=== PATIENT | female | born 1980 | race Caucasian/White ===

== ENCOUNTER → 2016-09-20 | Outpatient (CLI) | payer BC ==
[~2016-09-20] MED LIST: BIOT500C PO; CYAN500L PO; DCS100C PO; DESV100T PO; FERR-57 PO; FEXO30TA17 PO; HCTZ12.5T GT; HYDR10TA13 PO; IBP600T1 PO; LEVO5TAB2 PO; LVT.05T PO; METF-380 PO; NIFE10CA21 PO; OMEP20TA2 PO; OMEP40CA36 PO; OXYC-12 PO; PANT40TA PO; PREN1TAB39 PO; SERT20OR PO; SERT50TA PO; THYR90TA PO
--- NOTE | 2016-09-20 17:52 | Diagnostic Imaging Report ---
EXAMINATION: Pelvic ultrasound. INDICATION: Bleeding. FINDINGS: The previous pelvic ultrasound exam performed on 06/18/2012 noted a degenerating follicle associated with the left ovary measuring 1.2 cm in size. There was no other abnormality identified. On this exam, the uterus is nongravid and not enlarged measuring 6.3 x 4.3 x 3.8 cm. The endometrium is not thickened measuring 4 mm. There is no focal mass involving the uterus to suggest a fibroid. However, there was a small calcification within the uterine fundus on the right. Whether this is related to a calcified fibroid is not certain. Even in retrospect, this could not be identified on the previous exam. Reportedly, the patient had an ablation one year ago. Whether this calcification is a sequela of that procedure is unclear. Both ovaries were identified. Each ovary contains a few subcentimeter follicles. There may be single 1 cm cyst associated with the left ovary. There is good blood flow to each ovary, and there is no sign of torsion. There is no solid pelvic mass or free fluid collection noted. IMPRESSION: 1. The endometrial lining is not thickened. 2. The area of calcification in the uterine body on the right is of uncertain etiology. 3. There are subcentimeter follicles on each ovary and a small 1 cm cyst in the left ovary. There is no acute pelvic abnormality noted otherwise. Dictated by: Dictated on workstation # [id number]
== END ==
LOC: RAD 14:34
PROVIDERS: ATTEND Obstetrics & Gynecology
DX: N93.9 Abnormal uterine and vaginal bleeding, unspecified (principal); Z98.890 Other specified postprocedural states
CPT/HCPCS: 76830; 76856

== ENCOUNTER 2017-08-29 05:38 | Outpatient (CLI) | payer BC ==
[~2017-08-29] VITALS: Ht 160 cm; Wt 70.3 kg
[2017-08-29] MEDS ORDERED: OMEP40CA36 PO (12:24)
[2017-08-29] MEDS ORDERED: MV-M1TAB20 PO (12:24)
[2017-08-29] MEDS ORDERED: AMPH25CA3 PO (12:24)
[2017-08-29] MEDS ORDERED: LEVO5TAB12 PO (12:24)
[2017-08-29] MEDS ORDERED: ALPR0.254 PO (12:24)
[2017-08-29] MEDS ORDERED: vitamin b complex IM (12:24)
[2017-09-01] MEDS ORDERED: IBUP-1773 PO (14:16)
[2017-09-01] MEDS ORDERED: HYDR-757 PO (14:16)
== END 2017-08-29 12:31 ==
LOC: PREOP 05:38
PROVIDERS: ATTEND Obstetrics & Gynecology
DX: Z01.818 Encounter for other preprocedural examination (principal); N92.0 Excessive and frequent menstruation with regular cycle; N88.2 Stricture and stenosis of cervix uteri

== ENCOUNTER 2017-09-01 10:47 | Day surgery (SDC) | payer BC ==
[~2017-09-01] VITALS: Ht 160 cm; Wt 70.3 kg
[~2017-09-01 10:47] MED LIST changes: +ALPR0.254 PO; +AMPH25CA3 PO; +LEVO5TAB12 PO; +MV-M1TAB20 PO; +vitamin b complex IM
--- OUTSIDE RECORDS SUMMARY | 2017-09-01 10:51 | XMS REPORT | Continuity of Care Document ---
Author Author [employer] Organization [facility] Address Unknown Phone Unavailable Care Team Providers Care Look Out Tower Fire Watcher Name Role Phone [employer] Unavailable Unavailable Problems Medications Allergies, Adverse Reactions, Alerts Immunizations Results Vital Signs Encounters Location Location Details Encounter Type Encounter Number Reason For Visit Attending Provider ADM Date DC Date Status Source OUTPATIENT [id number] TORI FERRIS 01/25/20172016 Active [facility] OP SURGERY [id number] TORI FERRIS 03/28/20172016 Active [facility] OUTPATIENT [id number] TORI FERRIS 04/12/20172016 Active [facility] OUTPATIENT [id number] TORI FERRIS 05/15/20172016 Active [facility] OUTPATIENT [id number] TORI FERRIS 07/05/20172017 Active [facility] O TORI FERRIS Active [facility] Procedures Plan of Care Social History Assessment and Plan Family History Advance Directives Functional Status
--- OUTSIDE RECORDS SUMMARY | 2017-09-01 10:53 | XMS REPORT | Encounter Summary ---
Author Author [facility] Organization [facility] Address Unknown Phone Unavailable Care Team Providers Care Hydraulic Strainer Operator Name Role Phone Viktoria Perez MD PCP Encounter Details Date Type Department Care Team Description 08/16/2017 Documentation [facility] Cameron Nunez MD [facility] [address] [place] [address] [place] [address] [place] [address] [phone] Social History Tobacco Use Types Packs/Day Years Used Date Former Smoker Cigarettes 1 15 Quit: 11/17/2009 Smokeless Tobacco: Never Used Alcohol Use Drinks/Week oz/Week Comments Yes 2-4 Cans of 1.2 - 2.4 twice weekly beer Sex Assigned at Date Recorded Not on file as of this encounter Functional Status Functional Status Response Date of Assessment Does the patient have a hearing impairment: No 07/05/2017 Does the patient have a visual impairment: No 07/05/2017 Does the patient have impaired ambulation: No 07/05/2017 Does the patient have an activity of daily living No 07/05/2017 (ADL) impairment: Does the patient have an instrumental activity of No 07/05/2017 daily living (IADL) impairment: Cognitive Status Response Date of Assessment Does the patient have a cognitive impairment: No 07/05/2017 as of this encounter Progress Notes * Radha Calero RN - 08/16/2017 8:59 AM INSOLE REINFORCER Faxed PT protocol to Frank at [phone], per patient protocol. No further action required at this time. in this encounter Plan of Treatment Not on fileas of this encounter Visit Diagnoses Not on filein this encounter
--- OUTSIDE RECORDS SUMMARY | 2017-09-01 10:53 | XMS REPORT | Clinical Summary ---
Author Author [facility] Organization [facility] Address Unknown Phone Unavailable Care Team Providers Care Molding Sander Name Role Phone Viktoria Perez MD PCP Source Comments Some departments are not documenting in the electronic medical record. If you do not see the information that you expected, contact Release of Information in the Health Information Management department at [phone] for further assistance in locating additional records.[facility] Allergies Active Allergy Reactions Severity Noted Date Comments Berries ANGIOEDEMA High 01/25/2017 Melon ANGIOEDEMA High 01/25/2017 Shellfish Containing ANGIOEDEMA High 01/25/2017 Products Current Medications Prescription Sig. Disp. Refills Start End Date Status Date Levocetirizine 5 mg tab Take 5 mg by mouth daily. Active ALPRAZolam (XANAX) 0.25 Take 0.25 mg by mouth at Active mg tablet bedtime as needed for Anxiety. amphetamine-dextroampheta Take 25 mg by mouth every Active mine XR(+) (ADDERALL XR) morning Indications: 25 mg capsuleIndications: ATTENTION-DEFICIT ATTENTION-DEFICIT HYPERACTIVITY DISORDER HYPERACTIVITY DISORDER HYDROcodone/acetaminophen Take 1 tablet by mouth Active (NORCO) 5/325 mg tablet every 4 hours as needed for Pain ibuprofen (MOTRIN) 800 mg Take 800 mg by mouth Active tabletIndications: PAIN every 6 hours as needed for Pain. Take with food. Indications: PAIN omeprazole DR(+) Take 40 mg by mouth daily Active (PRILOSEC) 40 mg before breakfast. capsuleIndications: Indications: GASTROESOPHAGEAL REFLUX GASTROESOPHAGEAL REFLUX DISEASE DISEASE lisinopril (PRINIVIL; Take 40 mg by mouth Active ZESTRIL) 20 mg tablet daily. oxyCODONE (ROXICODONE, Take 1 tablet by mouth 50 tablet 0 /10/20 Active OXY-IR) 5 mg tablet every 4 hours as needed 17 for Pain naproxen (NAPROSYN) 500 Take 1 tablet by mouth 60 tablet 2 03/28/20 Active mg tablet twice daily with meals. 17 Take with food. 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 Acetabular labrum tear 02/04/2017 Encounters Date Type Specialty Care Team Description 08/16/2017 Documentation Sports Medicine Cameron Nunez MD 07/05/2017 Office Visit Sports Medicine Cameron Nunez MD Femoroacetabular impingement of left hip (Primary Dx); Tear of left acetabular labrum, subsequent encounter; Left hip pain; Trochanteric bursitis of left hip; Ischiogluteal bursitis of left side from Last 3 Months Family History Medical History Relation Name Comments None Reported Father Coronary Artery Disease Maternal Grandfather Diabetes Type II Maternal Grandmother None Reported Mother Coronary Artery Disease Paternal Grandfather Relation Name Status Comments Father Alive Maternal Grandfather Maternal Grandmother Alive Mother Alive Paternal Grandfather Social History Tobacco Use Types Packs/Day Years Used Date Former Smoker Cigarettes 1 15 Quit: 11/17/2009 Smokeless Tobacco: Never Used Alcohol Use Drinks/Week oz/Week Comments Yes 2-4 Cans of 1.2 - 2.4 twice weekly beer Sex Assigned at Date Recorded Not on file Last Filed Vital Signs Vital Sign Reading Time Taken Blood Pressure 133/116 07/05/2017 3:21 PM SHIP LINER Pulse 66 07/05/2017 3:21 PM SHIP LINER Temperature 36 C (96.8 F) 03/28/2017 1:40 PM CDT Respiratory Rate 15 07/05/2017 3:21 PM SHIP LINER Oxygen Saturation 100% 07/05/2017 3:21 PM SHIP LINER Inhaled Oxygen - - Concentration Weight 70.3 kg (155 lb) 07/05/2017 3:21 PM SHIP LINER Height 160 cm (5' 3") 07/05/2017 3:21 PM SHIP LINER Body Mass Index 27.46 07/05/2017 3:21 PM SHIP LINER Plan of Treatment Health Maintenance Due Date Last Done Comments PHYSICAL (COMPREHENSIVE) 1986 EXAM PERTUSSIS VACCINE 1990 HIV SCREENING 1994 TETANUS VACCINE 1996 CERVICAL CANCER SCREENING 2009 INFLUENZA VACCINE 03/19/2018 Implants Implanted Type Area Step Down Specialist Device Expiration Model / Identifier Date Serial / Lot Plate In Jaw Plate Screws In Jaw Screw Jumping Branch - Sna Left: Hip UNIDENTIFIED 04/20/2018 [id number] / Implanted: Qty: 3 on 03/28/2017 by [facility] [place] / Cameron Nunez MD [id number] Jumping Branch Suture Cinchlock Ss Knotless Left: Hip AHMET:AHMET 2018 [id number] / Call Box Wirer Lock Anatomic - Sna ENDOSCOPY NA / Implanted: Qty: 1 on 03/28/2017 by [id number] Cameron Nunez MD Jumping Branch Suture Cinchlock Ss Knotless Left: Hip AHMET:AHMET 2017 [id number] / Call Box Wirer Lock Anatomic - Sna ENDOSCOPY NA / Implanted: Qty: 1 on 03/28/2017 by [id number] Cameron Nunez MD Suture Jumping Branch 1.4mm Pivot [place] - Left: Hip AHMET:AHMET 11/19/2019 [id number] / Sn/A ORTHOPAEDICS N/A / Implanted: Qty: 1 on 03/28/2017 by [id number] Cameron Nunez MD Procedures Procedure Name Priority Date/Time Associated Diagnosis Comments [place] ARTHROCENTESIS Routine 07/06/2017 Ischiogluteal bursitis of Results for this ASPIR&/INJ MAJOR JT/BURSA 10:01 PM SHIP LINER left side procedure are in the W/O US results section. [place] ARTHROCENTESIS Routine 07/06/2017 Trochanteric bursitis of Results for this ASPIR&/INJ MAJOR JT/BURSA 10:01 PM SHIP LINER left hip procedure are in the W/O US results section. from Last 3 Months Results * [employer] [facility] LARGE JOINT DRAIN/INJECT (07/06/2017 10:01 PM) Specimen Performing Laboratory OTHER OUTSIDE LAB Narrative Cameron Nunez MD 07/06/2017 10:01 PM Large Joint Drain/Inject Location: hip L ischiogluteal bursa Consent: Consent obtained: verbal Consent given by: patient Risks discussed: arrhythmia, bleeding, bradycardia, damage to surrounding structures, headache, hyperglycemia, infection, itching, nerve damage, pain, skin discoloration, soft tissue reaction and vomiting Alternatives discussed: alternative treatment, delayed treatment and no treatment [place] Protocol: Relevant documents: relevant documents present and verified Test results: test results available and properly labeled Imaging studies: imaging studies available Required items: required blood products, implants, devices, and special equipment available Site marked: the operative site was marked Patient identity confirmed: Patient identify confirmed verbally with patient. Time out: Immediately prior to procedure a "time out" was called to verify the correct patient, procedure, equipment, it technical support specialist and site/side marked as required Procedures Details: Indications: pain Prep: povidone-iodine Local anesthetic: ethyl chloride spray Needle size: 22 G Approach: posterior Medications administered: 4 mL ropivacaine (PF) 0.5% (5 mg/mL); 40 mg triamcinolone acetonide 40 mg/mL * [place] 100e LARGE JOINT DRAIN/INJECT (07/06/2017 10:01 PM) Specimen Performing Laboratory OTHER OUTSIDE LAB Narrative Cameron Nunez MD 07/06/2017 10:01 PM Large Joint Drain/Inject Location: hip L greater trochanteric bursa Consent: Consent obtained: verbal Consent given by: patient Risks discussed: bleeding, damage to surrounding structures, hyperglycemia, infection, itching, pain, skin discoloration and soft tissue reaction Alternatives discussed: alternative treatment, delayed treatment and no treatment Discussed with patient the purpose of the treatment/procedure, other ways of treating my condition, including no treatment/ procedure and the risks and benefits of the alternatives. Patient has decided to proceed with treatment/procedure. [place] Protocol: Relevant documents: relevant documents present and verified Test results: test results available and properly labeled Imaging studies: imaging studies available Required items: required blood products, implants, devices, and special equipment available Site marked: the operative site was marked Patient identity confirmed: Patient identify confirmed verbally with patient. Time out: Immediately prior to procedure a "time out" was called to verify the correct patient, procedure, equipment, it technical support specialist and site/side marked as required Procedures Details: Indications: pain Prep: povidone-iodine Local anesthetic: ethyl chloride spray Needle size: 22 G Approach: lateral Medications administered: 4 mL ropivacaine (PF) 0.5% (5 mg/mL); 40 mg triamcinolone acetonide 40 mg/mL Patient tolerance: Patient tolerated the procedure well with no immediate complications. Pressure was applied, and hemostasis was accomplished. from Last 3 Months
--- OUTSIDE RECORDS SUMMARY | 2017-09-01 10:53 | XMS REPORT | Encounter Summary ---
Author Author [facility] Organization [facility] Address Unknown Phone Unavailable Care Team Providers Care District Manager Name Role Phone Viktoria Perez MD PCP Reason for Referral * Consult, Test & Treat Status Reason Specialty Diagnoses / Referred By Referred To Procedures Contact Contact Closed Specialty Physical Therapy Diagnoses Cameron Nunez Ortho Pt Services Femoroacetabular MD [facility] Required impingement of [address] [place], [place] Tear of left [place] [address] [id number] acetabular [place], [place] labrum, [id number] subsequent Phone: encounter [phone] Reason for Visit * Reason Comments Follow Up Encounter Details Date Type Department Care Team Description 07/05/2017 Office Visit [facility] Cameron Nunez MD Femoroacetabular [facility] [address] impingement of left hip Complex [place] [address] (Primary Dx); [address] [place] [address] [place]ear [place] [address] labrum, subsequent [phone] encounter; Left hip pain; Trochanteric bursitis of left hip; Ischiogluteal bursitis of left side Social History Tobacco Use Types Packs/Day Years Used Date Former Smoker Cigarettes 1 15 Quit: 11/17/2009 Smokeless Tobacco: Never Used Alcohol Use Drinks/Week oz/Week Comments Yes 2-4 Cans of 1.2 - 2.4 twice weekly beer Sex Assigned at Date Recorded Not on file as of this encounter Last Filed Vital Signs Vital Sign Reading Time Taken Blood Pressure 133/116 07/05/2017 3:21 PM PROFESSOR OF ECONOMICS Pulse 66 07/05/2017 3:21 PM PROFESSOR OF ECONOMICS Temperature - - Respiratory Rate 15 07/05/2017 3:21 PM PROFESSOR OF ECONOMICS Oxygen Saturation 100% 07/05/2017 3:21 PM PROFESSOR OF ECONOMICS Inhaled Oxygen - - Concentration Weight 70.3 kg (155 lb) 07/05/2017 3:21 PM PROFESSOR OF ECONOMICS Height 160 cm (5' 3") 07/05/2017 3:21 PM PROFESSOR OF ECONOMICS Body Mass Index 27.46 07/05/2017 3:21 PM PROFESSOR OF ECONOMICS in this encounter Functional Status Functional Status Response [...] as of this encounter Progress Notes * Cameron Nunez MD - 07/05/2017 3:20 PM PROFESSOR OF ECONOMICS Formatting of this note may be different from the original. Date of Service: 07/05/2017 History of Present Illness Debra Francois is a 36 y.o. female who presents in f/u of her left hip. She is three and a half months s/p lefthip arthroscopic acetabular labral repair, acetabuloplasty, femoroplasty. She is doing well, but continues to c/o persistent posterior and lateral sided hip pain. Otherwise, minimal complaints of pain today. Denies shooting pain radiating down her leg, as well as numbness and tingling. She is currently participating in PT, but would like to change therapists. Denies new injury. Review of Systems Musculoskeletal: Positive for arthralgias. Objective: ALPRAZolam (XANAX) 0.25 mg tablet Take 0.25 mg by mouth at bedtime as needed for Anxiety. amphetamine-dextroamphetamine XR(+) (ADDERALL XR) 25 mg capsule Take 25 mg by mouth every morning Indications: ATTENTION-DEFICIT HYPERACTIVITY DISORDER HYDROcodone/acetaminophen (NORCO) 5/325 mg tablet Take 1 tablet by mouth every 4 hours as needed for Pain ibuprofen (MOTRIN) 800 mg tablet Take 800 mg by mouth every 6 hours as needed for Pain. Take with food. Indications: PAIN Levocetirizine 5 mg tab Take 5 mg by mouth daily. lisinopril (PRINIVIL; ZESTRIL) 20 mg tablet Take 40 mg by mouth daily. naproxen (NAPROSYN) 500 mg tablet Take 1 tablet by mouth twice daily with meals. Take with food. omeprazole DR(+) (PRILOSEC) 40 mg capsule Take 40 mg by mouth daily before breakfast. Indications: GASTROESOPHAGEAL REFLUX DISEASE oxyCODONE (ROXICODONE, OXY-IR) 5 mg tablet Take 1 tablet by mouth every 4 hours as needed for Pain Vitals: 07/05/17 1521 BP: (!) 133/116 Pulse: 66 Resp: 15 SpO2: 100% Weight: 70.3 kg (155 lb) Height: 160 cm (63") Body mass index is 27.46 kg/(m^2). Physical Exam Ortho Exam General Healthy appearing 36 y.o. female in no acute distress. Alert and oriented x 3. Mood and affect are appropriate today. Constitutional: She is oriented to person, place, and time. She appears well- developed and well-nourished. HENT: Head: Normocephalic and atraumatic. Eyes: Conjunctivae and EOM are normal. Cardiovascular: Normal rate and intact distal pulses. Pulmonary/Chest: Effort normal. No respiratory distress. Neurological: She is alert and oriented to person, place, and time. Skin: Skin is warm and dry. Psychiatric: She has a normal mood and affect. Her behavior is normal. Judgment and thought content normal. Nursing note and vitals reviewed. Left hip was evaluated. Well-healed incisions. Skin intact. No erythema or induration. Swelling within normal limits related to surgery. Hip flexion to 135 degrees, without pain. FADIR and CY negative. Scour recreated lateral sided pain. Circumduction is negative. Full ER and abduction. NVI distally. Assessment and Plan: 36 y.o.female with 1. Three and a half months s/p lefthip arthroscopic acetabular labral repair, acetabuloplasty, femoroplasty 2. ischiogluteal bursitis 3. Trochanteric bursitis -New PT script with protocol, incorporating dry needling sessions. -Given her lateral and posterior hip pain today, I recommended treating her symptoms conservatively with a trochanteric bursa injection, in conjunction with an ischiogluteal bursa injection, both for therapeutic purposes. -Ice -Nsaids -F/u in six weeks. ATTESTATION I have taken down these notes in the presence of Dr. Cameron Nunez. Staff name: Yecenia Coburn Date: 07/05/2017 in this encounter Procedure Notes * Cameron Nunez MD - 07/05/2017 3:20 PM PROFESSOR OF ECONOMICS Associated Order(s): [facility] LARGE JOINT DRAIN/INJECT Post-Procedure Diagnose(s): Ischiogluteal bursitis of left side Large Joint Drain/Inject Location: hip L ischiogluteal bursa Consent: Consent obtained: verbal Consent given by: patient Risks discussed: arrhythmia, bleeding, bradycardia, damage to surrounding structures, headache, hyperglycemia, infection, itching, nerve damage, pain, skin discoloration, soft tissue reaction and vomiting Alternatives discussed: alternative treatment, delayed treatment and no treatment [place] Protocol: Relevant documents: relevant documents present and [...] to verify the correct patient, procedure, equipment, senior technical support analyst and site/side marked as required Procedures Details: Indications: pain Prep: povidone-iodine Local anesthetic: ethyl chloride spray Needle size: 22 G Approach: posterior Medications administered: 4 mL ropivacaine (PF) 0.5% (5 mg/mL); 40 mg triamcinolone acetonide 40 mg/mL * Cameron Nunez MD - 07/05/2017 3:20 PM PROFESSOR OF ECONOMICS Associated Order(s): [facility] [employer] LARGE JOINT DRAIN/INJECT Post-Procedure Diagnose(s): Trochanteric bursitis of left hip Large Joint Drain/Inject Location: hip L greater [...] alternatives. Patient has decided to proceed with treatment/ procedure. [place] Protocol: Relevant documents: relevant documents present and [...] to verify the correct patient, procedure, equipment, senior technical support analyst and site/side marked as required Procedures Details: Indications: pain Prep: povidone-iodine Local anesthetic: ethyl chloride spray Needle size: 22 G Approach: lateral Medications administered: 4 mL ropivacaine (PF) 0.5% (5 mg/mL); 40 mg triamcinolone acetonide 40 mg/mL Patient tolerance: Patient tolerated the procedure well with no immediate complications. Pressure was applied, and hemostasis was accomplished. in this encounter Plan of Treatment Name Priority Associated Diagnoses Order Schedule AMB REFERRAL TO PHYSICAL THERAPY Routine Femoroacetabular Ordered: 07/05 impingement of left hip Tear of left acetabular labrum, subsequent encounter as of this encounter Procedures Procedure Name Priority Date/Time Associated Diagnosis Comments [place] ARTHROCENTESIS Routine 07/06/2017 Ischiogluteal bursitis of Results for this ASPIR&/INJ MAJOR JT/BURSA 10:01 PM PROFESSOR OF ECONOMICS left side procedure are in the W/O US results section. [place] ARTHROCENTESIS Routine 07/06/2017 Trochanteric bursitis of Results for this ASPIR&/INJ MAJOR JT/BURSA 10:01 PM PROFESSOR OF ECONOMICS left hip procedure are in the W/O US results section. in this encounter Results * [facility] LARGE JOINT DRAIN/INJECT (07/06/2017 10:01 [...] alternative treatment, delayed treatment and no treatment [place] Protocol: Relevant documents: relevant documents present and [...] to verify the correct patient, procedure, equipment, senior technical support analyst and site/side marked as required Procedures Details: Indications: pain Prep: povidone-iodine Local anesthetic: ethyl chloride spray Needle size: 22 G Approach: posterior Medications administered: 4 mL ropivacaine (PF) 0.5% (5 mg/mL); 40 mg triamcinolone acetonide 40 mg/mL * [facility] LARGE JOINT DRAIN/INJECT (07/06/2017 10:01 [...] Patient has decided to proceed with treatment/procedure. [place] Protocol: Relevant documents: relevant documents present and [...] to verify the correct patient, procedure, equipment, senior technical support analyst and site/side marked as required Procedures Details: Indications: pain Prep: povidone-iodine Local anesthetic: ethyl chloride spray Needle size: 22 G Approach: lateral Medications administered: 4 mL ropivacaine (PF) 0.5% (5 mg/mL); 40 mg triamcinolone acetonide 40 mg/mL Patient tolerance: Patient tolerated the procedure well with no immediate complications. Pressure was applied, and hemostasis was accomplished. in this encounter Visit Diagnoses Diagnosis Femoroacetabular impingement of left hip - Primary Enthesopathy of hip region Tear of left acetabular labrum, subsequent encounter Left hip pain Pain in joint, pelvic region and thigh Trochanteric bursitis of left hip Enthesopathy of hip region Ischiogluteal bursitis of left side Administered Medications Medication Order MAR Action Action Date Dose Rate Site ropivacaine (PF) (NAROPIN) 0.5% (5 Given 07/05/2017 4 mL mg/mL) injection 4 mL 16:20 PROFESSOR OF ECONOMICS 4 mL, Injection, ONCE PRN, 1 dose, Starting 07/05/17 at 1620, Until Mon07/05/17 at 1620 ropivacaine (PF) (NAROPIN) 0.5% (5 Given 07/06/2017 4 mL mg/mL) injection 4 mL 22:00 PROFESSOR OF ECONOMICS 4 mL, Injection, ONCE PRN, 1 dose, Starting Elizabeth 07/06/17 at 2200, Until Elizabeth 07/06/17 at 2200 triamcinolone acetonide (KENALOG-40) Given 07/05/2017 40 mg injection 40 mg 16:20 PROFESSOR OF ECONOMICS 40 mg, Injection, ONCE PRN, 1 dose, Starting Mon07/05/17 at 1620, Until Mon07/05/17 at 1620 triamcinolone acetonide (KENALOG-40) Given 07/06/2017 40 mg injection 40 mg 22:00 PROFESSOR OF ECONOMICS 40 mg, Injection, ONCE PRN, 1 dose, Starting Elizabeth 07/06/17 at 2200, Until Elizabeth 07/06/17 at 2200 in this encounter
--- OUTSIDE RECORDS SUMMARY | 2017-09-01 10:54 | XMS REPORT | Continuity of Care Document ---
Author Author [facility] Organization [facility] Address Unknown Phone Unavailable Allergies Active Description Code Type Severity Reaction Onset Reported/Identified Relationship to Patient Clinical Status Yes NKANo Known Allergies NKA Miscellaneous Allergy Mild N/A 08/18/2005 Medications There is no data. Problems Date Dx Coded Attending Type Code Diagnosis Diagnosed By 05/27/2012 Ot 787.91 DIARRHEA 02/20/2013 COLE MONTES MD Ot 530.11 REFLUX ESOPHAGITIS 02/20/2013 COLE MONTES MD Ot 535.50 UNSP GASTRITIS GASTRODUODENITIS W/O ME 02/20/2013 COLE MONTES MD Ot 553.3 DIAPHRAGMATIC HERNIA 08/28/2013 EPI FOURNIER MD Ot 244.9 HYPOTHYROIDISM NOS 08/28/2013 EPI FOURNIER MD Ot 255.8 ADRENAL DISORDER NEC 08/28/2013 EPI FOURNIER MD Ot 311 DEPRESSIVE DISORDER NEC 08/28/2013 EPI FOURNIER MD Ot 787.01 NAUSEA WITH VOMITING 08/28/2013 EPI FOURNIER MD Ot 787.91 DIARRHEA 08/28/2013 EPI FOURNIER MD Ot V13.01 PERSONAL HISTORY OF URINARY CALCULI 08/28/2013 EPI FOURNIER MD Ot V45.86 BARIATRIC SURGERY STATUS 06/28/2016 Ot 789.00 ABDOMINAL PAIN, UNSPECIFIED SITE 06/28/2016 Ot 787.91 DIARRHEA 06/28/2016 Ot 620.2 OVARIAN CYST NEC/NOS 06/28/2016 COLE MONTES MD Ot V72.84 EXAM PRE-OPERATIVE NOS 06/28/2016 EPI FOURNIER MD Ot 793.80 UNSPEC ABNORMAL MAMMOGRAM 06/28/2016 EPI FOURNIER MD Ot V16.3 FAMILY HX-BREAST MALIG 06/28/2016 EPI FOURNIER MD, Ot V76.12 OTH SCREEN MAMMO-MALIGN NEOPLASM OF NOE 06/28/2016 EPI FOURNIER MD Ot 611.72 LUMP OR MASS IN BREAST 06/28/2016 Ot 719.45 JOINT PAIN- PELVIS 06/28/2016 ANGELLA YUN Ot R06.00 DYSPNEA, UNSPECIFIED 06/28/2016 ANGELLA YUN Ot E03.9 HYPOTHYROIDISM, UNSPECIFIED 06/28/2016 ANGELLA YUNP Ot E04.1 NONTOXIC SINGLE THYROID NODULE 09/20/2016 Ot 789.00 ABDOMINAL PAIN, UNSPECIFIED SITE 09/20/2016 Ot 787.91 DIARRHEA 09/20/2016 Ot 620.2 OVARIAN CYST NEC/NOS 09/20/2016 COLE MONTES MD Ot V72.84 EXAM PRE-OPERATIVE NOS 09/20/2016 EPI FOURNIER MD Ot 793.80 UNSPEC ABNORMAL MAMMOGRAM 09/20/2016 EPI FOURNIER MD Ot V16.3 FAMILY HX-BREAST MALIG 09/20/2016 EPI FOURNIER MD Ot V76.12 OTH SCREEN MAMMO-MALIGN NEOPLASM OF NOE 09/20/2016 EPI FOURNIER MD Ot 611.72 LUMP OR MASS IN BREAST 09/20/2016 Ot 719.45 JOINT PAIN- PELVIS 09/20/2016 ANGELLA YUN Ot R06.00 DYSPNEA, UNSPECIFIED 09/20/2016 ANGELLA YUN Ot E03.9 HYPOTHYROIDISM, UNSPECIFIED 09/20/2016 ANGELLA YUN Ot E04.1 NONTOXIC SINGLE THYROID NODULE 09/20/2016 Ot 789.00 ABDOMINAL PAIN, UNSPECIFIED SITE 09/20/2016 Ot 787.91 DIARRHEA 09/20/2016 Ot 620.2 OVARIAN CYST NEC/NOS 09/20/2016 COLE MONTES MD Ot V72.84 EXAM PRE-OPERATIVE NOS 09/20/2016 EPI FOURNIER MD Ot 793.80 UNSPEC ABNORMAL MAMMOGRAM 09/20/2016 EPI FOURNIER MD Ot V16.3 FAMILY HX-BREAST MALIG 09/20/2016 EPI FOURNIER MD Ot V76.12 OTH SCREEN MAMMO-MALIGN NEOPLASM OF NOE 09/20/2016 EPI FOURNIER MD Ot 611.72 LUMP OR MASS IN BREAST 09/20/2016 Ot 719.45 JOINT PAIN- PELVIS 09/20/2016 ANGELLA YUN Ot R06.00 DYSPNEA, UNSPECIFIED 09/20/2016 ANGELLA YUN Ot E03.9 HYPOTHYROIDISM, UNSPECIFIED 09/20/2016 ANGELLA YUNP Ot E04.1 NONTOXIC SINGLE THYROID NODULE 09/21/2016 KLEBER MOREJON JAMARI C Ot N93.9 ABNORMAL UTERINE AND VAGINAL BLEEDING, U 09/21/2016 SHAHID DO JAMARI C Ot Z98.890 OTHER SPECIFIED POSTPROCEDURAL STATES 10/03/2016 SHAHID DO JAMARI C Ot N93.9 ABNORMAL UTERINE AND VAGINAL BLEEDING, U 10/03/2016 SHAHID DO JAMARI C Ot Z98.890 OTHER SPECIFIED POSTPROCEDURAL STATES 08/31/2017 SHAHID DO JAMARI C Ot N88.2 STRICTURE AND STENOSIS OF CERVIX UTERI 08/31/2017 SHAHIDBeverly MOREJON JAMARI C Ot N92.0 EXCESSIVE AND FREQUENT MENSTRUATION WITH 08/31/2017 SHAHID DO JAMARI C Ot Z01.818 ENCOUNTER FOR OTHER PREPROCEDURAL EXAMIN Procedures There is no data. Results There is no data. Encounters ACCT No. Visit Date/Time Discharge Status Pt. Type Provider Facility Loc./Unit Complaint [id number] 08/29/2017 05:38:00 08/29/2017 12:31:00 DIS Outpatient JAMARI SHAHID DO [facility] PREOP MENORRHAGIA,CERVIAL STENOSIS [id number] 09/20/2016 14:34:00 09/20/2016 23:59:59 CLS Outpatient JAMARI SHAHID DO [facility] RAD AUB [id number] 06/23/2015 11:27:00 06/23/2015 23:59:59 CLS Outpatient ANGELLA YUN [facility] CARD RT SOLID NODULE [id number] 05/29/2015 11:29:00 05/29/2015 23:59:59 CLS Outpatient ANGELLA YUNP [facility] RAD HYPOTHYROIDISM [id number] 05/19/2015 10:43:00 05/19/2015 23:59:59 CLS Outpatient YUNANGELLA MUD JACK NOZZLEMAN [facility] RAD DYSPNEA [id number] 08/28/2013 01:35:00 08/28/2013 17:05:00 DIS Inpatient EPI FOURNIER MD [facility] 4TH ABDOMINAL PAIN; VOMITING/DIARRHEA [id number] 04/25/2013 07:47:00 04/25/2013 23:59:59 CLS Outpatient EPI FOURNIER MD [facility] RAD ABN MAMMO [id number] 04/17/2013 09:33:00 04/17/2013 23:59:59 CLS Outpatient EPI FOURNIER MD [facility] RAD SCREENING [id number] 02/20/2013 09:09:00 02/20/2013 12:25:00 DIS Outpatient COLE MONTES MD [facility] GERD [id number] 02/13/2013 07:14:00 02/13/2013 23:59:59 CLS Outpatient COLE MONTES MD [facility] PREOP GERD [id number] 09/01/2017 10:47:00 ACT Outpatient JAMARI SHAHID DO [facility] MENORRHAGIA,CERVICAL STENOSIS [id number] 08/31/2017 08:03:00 ACT Outpatient TORI FERRIS MD [facility] REHAB S/P L HIP ACETABULAR LABRAL REPAIR;FEMORALPLASTY [id number] 02/02/2015 10:27:00 Document Registration [id number] 06/18/2012 09:07:00 Document Registration [id number] 05/28/2012 00:00:00 Document Registration [id number] 02/27/2012 09:42:00 Document Registration [id number] 02/10/2012 10:30:00 Document Registration
[2017-09-01] MEDS ORDERED: LACTATED RINGERS 1,000 ML IV PRN (11:36)
[2017-09-01 11:39] VITALS: BP 168/103
[2017-09-01] MEDS ORDERED: metroNIDAZOLE 500 MG/100 ML IVPB (PRE-MIX) IV ONE (11:45)
[2017-09-01] MEDS ORDERED: metroNIDAZOLE 500MG/100ML IVPB 100 ML IV ONE (11:45)
[2017-09-01] MEDS ORDERED: ceFAZolin INJECTION 1,000 MG in NS (IVPB) 100 ML IV ONE (11:45)
[2017-09-01] MEDS ORDERED: ceFAZolin 1 GM/NS 100 ML IVPB IV ONE ×2 (11:45)
[2017-09-01] MEDS ORDERED: SEVOFLURANE (ULTANE) 15 ML INHAL SOLN ONE (12:48)
[2017-09-01] MEDS ORDERED: ONDANSETRON 4 MG/2 ML (SDV) Z0FRAN ONE ×2 (12:48→13:16)
[2017-09-01] MEDS ORDERED: LIDOCAINE PF 2% 5 ML (XYLOCAINE) VIAL ONE (12:48)
[2017-09-01] MEDS ORDERED: DEXAMETHASONE 10 MG/ML (DECADRON) 1 ML VIAL ONE ×4 (12:48→12:55)
[2017-09-01] MEDS ORDERED: MIDAZOLAM 2 MG/2 ML (VERSED) VIAL ONE (12:48)
[2017-09-01] MEDS ORDERED: proPOfol 200 MG/20 ML (DIPRIVAN) VIAL IV ONE (12:48)
[2017-09-01] MEDS ORDERED: fentaNYL INJECTION 100 MCG/2 ML AMP ONE (12:48)
[2017-09-01] MEDS ORDERED: KETOROLAC 30 MG/ML VIAL ONE ×2 (12:54→13:15)
[2017-09-01] MEDS ORDERED: morphine INJ 10 MG/ML 1ML (SYR OR VIAL) ONE (13:15)
--- NOTE | 2017-09-01 13:27 | Progress Note-Pre Operative ---
Pre-Operative Progress Note H&P Reviewed The H&P was reviewed, patient examined and no changes noted. Date Seen by Provider: Sep 01, 2017 Time Seen by Provider: 13:15 Date H&P Reviewed: Sep 01, 2017 Time H&P Reviewed: 13:15 Pre-Operative Diagnosis: menorrhagia, cervical stenosis JAMARI SHAHID DO Sep 01, 2017 13:27
--- NOTE | 2017-09-01 14:13 | Operative Report ---
Operative Report Date of Procedure/Surgery Sep 01, 2017 Surgeon (s) JAMARI SHAHID DO Sr. Payroll Manager (s): na Post-Operative Diagnosis cervical stenosis polyp endometrial Procedure Performed hysteroscopy, dilation and curettage and placement of progestin containing IUD. Description of Procedure Anesthesia Type: General (LMA) Estimated blood loss (mL): 50 Specimen(s) collected/removed encometrial curettings. Description of the Procedure With informed consent, the patient was taken in to the operating room where general anesthesia was found to be adequate. She was prepped and draped in the usual sterile fashion in the dorsolithotomy position. The bladder was drained of clear yellow urine. A speculum was placed in the vagina. The cervix was grasped with a tenaculum. There is 2-3+ descensus and a mild rectocele. The external os is open, but I could not pass a uterine sound. I then gently sounded with Ng dilators to allow insertion of the hysteroscope. I did a hysteroscope. There is an abundant amount of polypoid proliferative tissue. I removed the scope and did a dilation and curettage. The patient wanted ot consider a repeat ablation, but with the proliferative tissue, I do not recommend this. It is risky anyway to do a repeat ablation and , in addition, I would not recommend ablating an area that could be cancerous. Without pathologic diagnosis, I would not recommend, so at this point. placed the IUD that we had previously agreed upon. The uterus was sounded to 7 cm. The IUS was inserted and deployed in standard fashion. The applicator was removed and the tenaculum removed from the cervix. The strings were cut. The patient was awakened and taken to the recovery room in a stable fashion. sponge, lap and needle counts correct x 2. Findings of the Procedure polypoid tissue, scarred endometrium and cervix. Allergies and Home Medications Allergies Coded Allergies: NKANo Known Allergies (Unverified Allergy, Mild, 08/18/05) Home Medications Alprazolam 0.25 Mg Tablet, 0.25 MG PO TID PRN for ANXIETY, (Reported) Dextroamphetamine/Amphetamine 25 Mg Cap.er.24h, 25 MG PO DAILY, (Reported) Hydrocodone/Acetaminophen 1 Each Tablet, 12 TAB PO Q4H PRN for PAIN-MODERATE Prescribed by: JAMARI SHAHID on 09/01/17 1416 Ibuprofen 600 Mg Tablet, 600 MG PO Q6H Prescribed by: JAMARI SHAHID on 09/01/17 1416 Levocetirizine Dihydrochloride 5 Mg Tablet, 5 MG PO DAILY PRN for allergies, ( Reported) Mv-Mn/Iron/FA/Herbal Cmplx#190 1 Each Tablet, 1 EACH PO DAILY, (Reported) Omeprazole 40 Mg Capsule.dr, 40 MG PO HS, (Reported) [vitamin b complex] , 1 ML IM every 2 weeks, (Reported) Patient Home Medication List Home Medication List Reviewed: Yes JAMARI SHAHID DO Sep 01, 2017 2:13 pm
[2017-09-01] MEDS ORDERED: KETOROLAC 30 MG/ML VIAL IVP ONE (14:15)
[2017-09-01] MEDS ORDERED: IBUP-1773 PO (14:16)
[2017-09-01] MEDS ORDERED: HYDR-757 PO (14:16)
--- NOTE | 2017-09-01 14:18 | Discharge Inst-Women's Service ---
Discharge Inst-Women's Serv Depart Medication/Instructions New, Converted or Re-Newed RX: RX on Chart Final Diagnosis menorrhagia cervical stenosis endometrial polyp Consults/Follow Up Additional Follow Up: Yes (2 weeks) Activity Activity: Activity as Tolerated Driving Instructions: No Driving for 24 Hours NO SMOKING: NO SMOKING Nothing Inside Vagina: No Douching, No [place], No Tampons Diet Discharge Diet: No Restrictions Symptoms to Report to : Bleeding Excessive, Pain Increased, Fever Over 101 Degrees F, Vaginal Bleeding Increase, Cramps in Feet or Legs, Vaginal Discharge Foul For Any Problems or Questions: Contact Your Physician JAMARI SHAHID DO Sep 01, 2017 14:18
[2017-09-01] MEDS: morphine INJ 10 MG/ML 1ML (SYR OR VIAL) IVP PRN ×2 (14:40→14:46)
[2017-09-01] MEDS: fentaNYL INJECTION 100 MCG/2 ML AMP IVP PRN ×2 (14:55→15:00)
--- NOTE | 2017-09-01 15:02 | Anesthesia-General Post-Op ---
General Patient Condition Mental Status/LOC: Same as Preop Cardiovascular: Satisfactory Nausea/Vomiting: Absent Respiratory: Satisfactory Pain: Controlled Complications: Absent Post Op Complications Complications None Follow Up Care/Instructions Patient Instructions None needed. Anesthesia/Patient Condition Patient Condition Patient is doing well, no complaints, stable vital signs, no apparent adverse anesthesia problems. No complications reported per nursing. NATALIIA UMAÑA CRNA Sep 01, 2017 15:02
[2017-09-01 15:48] VITALS: BP 167/98
[2017-09-01 15:55] VITALS: BP 171/103
[2017-09-01 16:16] VITALS: BP 171/103
== END 2017-09-01 16:15 | disposition home or self-care (01) ==
LOC: SDC 10:47
PROVIDERS: ATTEND Obstetrics & Gynecology
DX: N92.0 Excessive and frequent menstruation with regular cycle (principal); N88.2 Stricture and stenosis of cervix uteri; N84.0 Polyp of corpus uteri; N81.4 Uterovaginal prolapse, unspecified; N81.6 Rectocele; E27.40 Unspecified adrenocortical insufficiency; E03.9 Hypothyroidism, unspecified; F90.9 Attention-deficit hyperactivity disorder, unspecified type; Z79.899 Other long term (current) drug therapy
CPT/HCPCS: 84703; 87081; 88305; 94664

== ENCOUNTER 2017-10-10 10:15 | Outpatient (RCR) | payer BC ==
[~2017-10-10 10:15] MED LIST changes: +HYDR-757 PO; +IBUP-1773 PO
== END 2017-10-31 | disposition home or self-care (01) ==
PROVIDERS: ATTEND Orthopaedic Surgery
DX: S73.192D Other sprain of left hip, subsequent encounter (principal); M25.852 Other specified joint disorders, left hip

== ENCOUNTER → 2018-05-29 | Outpatient (CLI) | payer BC ==
[~2018-05-29] MED LIST changes: +HYDR-4226 PO; -HYDR-757 PO
--- NOTE | 2018-05-29 12:13 | Diagnostic Imaging Report ---
Ultrasound left breast. Indication: Left breast pain. By history, the patient has pain in the left breast and a small lump in the left axilla. The diagnostic mammogram performed earlier today failed to show any sign of malignancy involving the left breast. There was no evidence for an acute abnormality to account for the patient's pain either. On this study there is no discrete solid or cystic mass within the left breast. The left axilla was also examined. There is a small benign-appearing 1 cm lymph node in this area. No other mass or abscess is noted. Impression: 1. There is no evidence of malignancy and there is no acute abnormality identified. 2. If clinical concern regarding a palpable abnormality in the left axilla exists, biopsy should still be considered. ACR BI-RADS Category 1: Negative. Result letter will be mailed to the patient. Note: At least 10% of breast cancer is not imaged by Mammography. Dictated by: Dictated on workstation # [id number]
--- NOTE | 2018-05-29 18:08 | Diagnostic Imaging Report ---
Digital mammogram bilateral diagnostic with 3-D tomosynthesis. INDICATION: Left breast pain, left breast lump. The current study was also evaluated with a Computer Aided Detection (CAD) system. This study was compared to prior exams of 04/17/13. At this time, the patient does complain of pain in the left breast. There is also question of a lump in the left axilla. FINDINGS: The fibroglandular tissue in both breasts is heterogeneously dense. This does limit the sensitivity of this exam. Overall, there does not appear to have been any significant change when compared to the prior study. There is no primary or secondary sign of malignancy noted. There is no acute abnormality to account for patient's left breast pain either. IMPRESSION: 1. There is no evidence of malignancy or for an acute abnormality. 2. Ultrasound of the left breast is pending for further study. ACR BI-RADS Category 0: Incomplete. (Needs additional imaging evaluation). Result letter will be mailed to the patient. Note: At least 10% of breast cancer is not imaged by mammography. Dictated by: Dictated on workstation # [id number]
== END ==
LOC: RAD 10:49
PROVIDERS: ATTEND Nurse Practitioner Family
DX: N63.20 Unspecified lump in the left breast, unspecified quadrant (principal)
CPT/HCPCS: 76641; 77066

== ENCOUNTER 2018-07-08 05:57 | Inpatient (IN) | payer BC | END 2018-07-09 15:20 | disposition home or self-care (01) | LOC: ER 05:57 → ICU 07:30 ==

== ENCOUNTER 2019-08-28 06:00 | Outpatient (CLI) | payer BC ==
[~2019-08-28] VITALS: Ht 157.5 cm; Wt 82.9 kg
[~2019-08-28 06:00] MED LIST changes: +CNC1KV INJ; +DEXT25CA PO; +ESCI10TA PO; +HYDR25TA4 PO; +MTP25TSR PO; +OMEP40CA27 PO
[2019-08-28 15:54] LABS: BILIRUBIN,URINE NEGATIVE (NEGATIVE); CLARITY,URINE CLEAR; COLOR,URINE YELLOW; GLUCOSE, URINE (UA) NEGATIVE (NEGATIVE); KETONES,URINE NEGATIVE (NEGATIVE); LEUKOCYTE ESTERASE ,URINE 1+ (NEGATIVE); NITRITE,URINE NEGATIVE (NEGATIVE); PROTEIN,URINE NEGATIVE (NEGATIVE)
[2019-08-28 15:55] LABS: BASOPHILS % (AUTO) 0 % (0-10); EOSINOPHILS # (AUTO) 0.3 10^3/uL (0.0-0.3); EOSINOPHILS % (AUTO) 3 % (0-10); HEMATOCRIT 37 % (35-52); HEMOGLOBIN 12.3 G/DL (11.5-16.0); LYMPHOCYTES # (AUTO) 1.6 X 10^3 (1.0-4.0); LYMPHOCYTES % (AUTO) 20 % (12-44); MEAN CORPUSCULAR HEMOGLOBIN 29 PG (25-34); MEAN CORPUSCULAR HGB CONC 33 G/DL (32-36); MEAN CORPUSCULAR VOLUME 88 FL (80-99); MEAN PLATELET VOLUME 10.5 FL (7.4-10.4); MONOCYTES # (AUTO) 0.6 X 10^3 (0.0-1.0); MONOCYTES % (AUTO) 7 % (0-12); NEUTROPHILS # (AUTO) 5.7 X 10^3 (1.8-7.8); NEUTROPHILS % (AUTO) 69 % (42-75); PLATELET COUNT 282 10^3/uL (130-400); RED CELL DISTRIBUTION WIDTH 13.4 % (10.0-14.5); WHITE BLOOD COUNT 8.3 10^3/uL (4.3-11.0)
[2019-08-28 16:04] LABS: BACTERIA,URINE MODERATE /HPF
[2019-08-29] MEDS ORDERED: LISI-552 PO (11:37)
[2019-08-29] MEDS ORDERED: METO-333 PO (11:37)
[2019-08-30] MEDS ORDERED: ALPR0.5T7 PO (09:41)
[2019-08-30] MEDS ORDERED: ESCI10TA55 PO (09:41)
[2019-09-04] MEDS ORDERED: DCS100C PO (05:34)
[2019-09-04] MEDS ORDERED: IBUP-844 PO (05:34)
[2019-09-04] MEDS ORDERED: ACET-93 PO (05:34)
[2019-09-04] MEDS ORDERED: ONDA4TAB11 PO (05:34)
[2019-09-04] MEDS ORDERED: OXC5T PO (05:34)
== END 2019-08-28 16:00 | disposition home or self-care (01) ==
LOC: PREOP 06:00
PROVIDERS: ATTEND Obstetrics & Gynecology
DX: Z01.812 Encounter for preprocedural laboratory examination (principal); N81.2 Incomplete uterovaginal prolapse; N92.1 Excessive and frequent menstruation with irregular cycle; N28.9 Disorder of kidney and ureter, unspecified
CPT/HCPCS: 36415; 81000; 85025; 86850; 86900; 86901; 87081; 87088

== ENCOUNTER → 2020-08-12 | Outpatient (CLI) | payer BC ==
[~2020-08-12] MED LIST changes: +ACET-93 PO; +ALPR.25T PO; -ALPR0.254 PO; +ALPR0.5T7 PO; +CATHETER FLUSH 10 ML SYR IV PRN; +ESCI-2 PO; +HOLD METFORMIN - RECEIVED CONTRAST 20 ML VIAL IV SCH; +IBUP-844 PO; +IOHEXOL 350 MG/ML 100 ML (OMNIPAQUE 350) VIAL IV ONE; +LISI20TA26 PO; +METO-333 PO; +NIFE20CA PO; +NS 100 ML (IVPB) BAG IV ONE; +ONDA4TAB11 PO; +OXC5T PO
[2020-08-12 16:43] LABS: HEMOGLOBIN 12.5 g/dL (11.5-16.0); MEAN PLATELET VOLUME 10.2 fL (9.0-12.2); WHITE BLOOD COUNT 8.5 10^3/uL (4.3-11.0)
[2020-08-12 16:54] LABS: ALBUMIN 4.5 GM/DL (3.2-4.5); CHLORIDE 99 MMOL/L (98-107); POTASSIUM 3.5 MMOL/L (3.6-5.0); SODIUM 138 MMOL/L (135-145)
[2020-08-12 16:56] LABS: CALCIUM 9.6 MG/DL (8.5-10.1)
[2020-08-12 16:57] LABS: GLUCOSE 95 MG/DL (70-105); TOTAL PROTEIN 8.1 GM/DL (6.4-8.2)
[2020-08-12 16:58] LABS: BILIRUBIN,TOTAL 0.4 MG/DL (0.1-1.0); CARBON DIOXIDE 27 MMOL/L (21-32)
[2020-08-12 17:00] LABS: ALKALINE PHOSPHATASE 91 U/L (40-136); CREATININE SERUM 0.82 MG/DL (0.60-1.30); GFR ESTIMATED > 60
[2020-08-12 17:01] LABS: BUN/CREATININE RATIO 13
[2020-08-12 17:03] LABS: ALANINE AMINOTRANSFERASE 21 U/L (0-55)
--- NOTE | 2020-08-12 17:47 | Diagnostic Imaging Report ---
PROCEDURE: CT abdomen and pelvis with contrast. TECHNIQUE: Multiple contiguous axial images were obtained through the abdomen and pelvis after administration of intravenous contrast. Auto Exposure Controls were utilized during the CT exam to meet ALARA standards for radiation dose reduction. All CT scans use one or more of the following dose optimizing techniques: automated exposure control, MA and/or KvP adjustment based on patient size and exam type or iterative reconstruction. INDICATION: Abdominal pain and bloody stools. COMPARISON: 08/28/2013. FINDINGS: Lung bases are clear. There is a Lap Band device in place. There is no obstruction or inflammation. The gallbladder, solid organs, vascular structures and small bowel are normal. There is some slight constipation without obstruction or ileus. Visualized appendix is normal. The uterus is surgically absent. The urinary bladder is grossly unremarkable. There is no inflammation or lymphadenopathy but osseous structures are stable. IMPRESSION: 1. Stable appearing Lap Band device. No obstruction or inflation is seen 2. Not mentioned above, nonobstructive stone in the inferior pole of left kidney. 3. Slight constipation without bowel obstruction. 4. Surgically absent uterus. Dictated by: Dictated on workstation # [id number]
== END ==
LOC: RAD 16:30
PROVIDERS: ATTEND Family Medicine
DX: K92.1 Melena (principal); N20.0 Calculus of kidney; K59.00 Constipation, unspecified; Z90.710 Acquired absence of both cervix and uterus
CPT/HCPCS: 36415; 74177; 80053; 85027

== ENCOUNTER 2020-08-17 05:31 | Outpatient (RCR) | payer BC ==
[~2020-08-17] VITALS: Ht 160 cm; Wt 87.7 kg
[~2020-08-17 05:31] MED LIST changes: -CATHETER FLUSH 10 ML SYR IV PRN; -HOLD METFORMIN - RECEIVED CONTRAST 20 ML VIAL IV SCH; -IOHEXOL 350 MG/ML 100 ML (OMNIPAQUE 350) VIAL IV ONE; -NS 100 ML (IVPB) BAG IV ONE
--- NOTE | 2020-08-17 19:41 | HISTORY AND PHYSICAL ---
DATE OF SERVICE: ATTENDING PRIMARY CARE PHYSICIAN: Viktoria Perez MD HISTORY OF PRESENT ILLNESS: The patient is a 40-year-old female known to us. We had initially seen her in 01/2013 for morbid obesity and medical comorbidities including hypertension, hypertriglyceridemia, hypercholesterolemia, non-insulin dependent diabetes as well as gastroesophageal reflux disease. She is status post laparoscopic adjustable gastric band with an AP standard band on 03/25/2013. We have seen her for postoperative visits for band adjustments and she had done significantly well for many years; however, reports that she has gained some weight and has had difficulty losing the weight as well. She also reports that she has had worsening episodes of epigastric burning sensation as well as crampy pain despite being medically compliant and taking in a high protein diet and avoiding acidogenic foods. She also does report noticing dark tarry stools on an intermittent basis in the past several months as well. PAST MEDICAL HISTORY: Hypertension, hypercholesterolemia, history of nephrolithiasis, history of ovarian cyst, ADHD, anxiety, depression. PAST SURGICAL HISTORY: Laparoscopic adjustable gastric band in 03/2013. Uterine ablation, jaw reconstruction, rhinoplasty, sinus surgery. ALLERGIES: No known drug allergies. MEDICATIONS: Alprazolam 0.25 mg q.12 hours p.r.n., cyanocobalamin 1000 mcg injection every 2 weeks, citalopram 20 mg daily, hydrochlorothiazide 25 mg daily, levocetirizine 5 mg daily, metoprolol 25 mg daily, omeprazole 40 mg daily. SOCIAL HISTORY: Negative smoke. She does drink alcohol daily. FAMILY HISTORY: Mother and sister, cervical cancer. VITAL SIGNS: Stable. Blood pressure 141/94, pulse 82, respirations 10, pulse ox 96% on room air. Current weight 200 pounds at 5 feet 2 inches with a body mass index of 36.7. REVIEW OF SYSTEMS: Well-nourished female currently in no acute distress. She is not experiencing any shortness of breath or difficulty breathing. No chest pain, palpitations, diaphoresis. Intermittent episodes of crampy epigastric pain as well as dysphagia for some types of foods and regurgitation. No hematemesis, no coffee ground emesis. She also has had intermittent episodes of dark tarry stools. During these episodes, she would also have constipation. No fever, chills, no recent inadvertent weight loss. All other review of systems negative. PHYSICAL EXAMINATION: CHEST: Clear. Good breath sounds bilaterally. HEART: Regular, no murmurs. EXTREMITIES: No lower extremity edema, negative Homans sign. HEENT: No scleral icterus. NECK: No cervical lymphadenopathy. ABDOMEN: Soft, nondistended. There is pain in the epigastric region upon deep palpation. No peritoneal signs. No hernias. SKIN: Warm, dry. ASSESSMENT AND PLAN: A 40-year-old female with worsening gastroesophageal reflux disease, dysphagia as well as dark tarry stools. We will proceed with evaluation of her upper and lower gastrointestinal tract with an EGD and colonoscopy and also locate the positioning of the band to see if this has potentially slipped and superiorly or inferiorly. If this is the case, she may benefit from laparoscopic band removal and interval other bariatric surgical procedure if she wishes to proceed with that. Job ID: [id number] DocumentID: [id number] Dictated Date: 08/17/2020 19:18:28 Quantitative Manager Date: 08/17/2020 19:40:46 Dictated By: COLE MONTES MD
== END 2020-08-17 10:56 | disposition home or self-care (01) ==
LOC: PREOP 05:31
PROVIDERS: ATTEND Surgery
DX: Z01.818 Encounter for other preprocedural examination (principal); K62.5 Hemorrhage of anus and rectum; Z20.822 Contact with and (suspected) exposure to COVID-19
CPT/HCPCS: 87635

== ENCOUNTER 2020-08-19 12:10 | Day surgery (SDC) | payer BC ==
[~2020-08-19] VITALS: Ht 160 cm; Wt 88.0 kg
[2020-08-19] VITALS (8 sets, daily range): BP systolic 105–146; BP diastolic 56–99
[2020-08-19] MEDS ORDERED: LACTATED RINGERS 1,000 ML IV ONE (12:30)
[2020-08-19] MEDS ORDERED: LACTATED RINGERS 1,000 ML IV STA (12:33)
--- NOTE | 2020-08-19 12:35 | Conscious Sedation/ASA ---
Conscious Sedation Pre-Proced Time 12:30 ASA Score 2 For ASA 3 and 4: Consider anesthesia and medical clearance. Also, for patients with a history of failed moderate sedation consider anesthesia. Airway Lungs Heart ASA score ASA 1: a normal healthy patient ASA 2: a patient with a mild systemic disease (mid diabetes, controlled hypertension, obesity ASA 3: a patient with a severe systemic disease that limits activity (angina, COPD, prior Myocardial infarction) ASA 4: a patient with an incapacitating disease that is a constant threat to life (CHF, renal failure) ASA 5: a moribund patient not expected to survive 24 hrs. (ruptured aneurysm) ASA 6: a declared brain- patient whose organs are being harvested. For emergent operations, add the letter E after the classification Mallampati Classification Grade 2 Sedation Plan Analgesia, Amnesia, Plan communicated to team members, Discussed options with patient/fam, Discussed risks with patient/fam The patient is an appropriate candidate to undergo the planned procedure, sedation, and anesthesia. The patient immediately re-assessed prior to indication. COLE MONTES MD Aug 19, 2020 12:35
--- NOTE | 2020-08-19 12:36 | Progress Note-Pre Operative ---
Pre-Operative Progress Note H&P Reviewed The H&P was reviewed, patient examined and no changes noted. Date Seen by Provider: Aug 19, 2020 Time Seen by Provider: 12:30 Date H&P Reviewed: Aug 19, 2020 Time H&P Reviewed: 12:30 Pre-Operative Diagnosis: GERD, dark tarry stools COLE MONTES MD Aug 19, 2020 12:36
[2020-08-19] MEDS ORDERED: PANT40TA2 PO (12:37)
--- NOTE | 2020-08-19 12:38 | Discharge Inst-Surgical ---
D/C Lap Instructions-SIMON Follow Up Appt in 2 weeks Activity as tolerated High Fiber Diet 25g or more per day Avoid Alcohol, Caffeine, Spicy [place] and Acid foods. Drink 64 fluid oz or more of fluids per day. Symptoms to Report: Fever over 101 degree F, Nausea/Vomiting If any problems/questions: Contact your physician or go to Emergency Room COLE MONTES MD Aug 19, 2020 12:38
[2020-08-19] MEDS ORDERED: LIDOCAINE JELLY 2% 6 ML SYRINGE MM PRN (12:45)
[2020-08-19] MEDS ORDERED: ONDANSETRON 4 MG/2 ML (SDV) Z0FRAN IVP PRN (12:45)
[2020-08-19] MEDS ORDERED: morphine INJ 10 MG/ML 1ML (SYR OR VIAL) IVP PRN ×2 (12:45)
[2020-08-19] MEDS ORDERED: HURRICAINE EXT TUBE (BENZOCAINE) XX PRN (12:45)
[2020-08-19] MEDS ORDERED: HYDROcodone/APAP 5 MG/325 MG (LORTAB) TAB PO PRN (12:45)
[2020-08-19] MEDS ORDERED: ACETAMINOPHEN 325 MG TABLET PO PRN (12:45)
[2020-08-19] MEDS ORDERED: PROPOFOL INJECTION 50 ML IV ONE ×2 (13:12→14:49)
[2020-08-19] MEDS ORDERED: MIDAZOLAM 2 MG/2 ML (VERSED) VIAL ONE (13:13)
[2020-08-19] MEDS ORDERED: LIDOCAINE JELLY 2% 6 ML SYRINGE ONE (13:58)
[2020-08-19] MEDS ORDERED: HURRICAINE EXT TUBE (BENZOCAINE) ONE (13:58)
--- NOTE | 2020-08-19 15:32 | Anesthesia-General Post-Op ---
MAC Patient Condition Mental Status/LOC: Same as Preop Cardiovascular: Satisfactory Nausea/Vomiting: Absent Respiratory: Satisfactory Pain: Controlled Complications: Absent Post Op Complications Complications None Follow Up Care/Instructions Patient Instructions None needed. Anesthesiology Discharge Order Discharge Order Patient is doing well, no complaints, stable vital signs, no apparent adverse anesthesia problems. No complications reported per nursing. NATALIIA UMAÑA CRNA Aug 19, 2020 15:32
--- NOTE | 2020-08-19 17:18 | Progress Note-Post Operative ---
Post-Operative Progess Note Surgeon (s)/Lumber Yard Worker (s) Surgeon COLE MONTES MD Lumber Yard Worker: none Pre-Operative Diagnosis GERD, dark tarry stools Post-Operative Diagnosis reflux esophagitis(stage 2), slightly large gastric pouch, no band erosion, moderate gastritis. mild chronic stage 2 ext and int hemorrhoids. Procedure & Operative Findings Date of Procedure 08/19/20 Procedure Performed/Findings EGD with bx. colonoscopy. Anesthesia Type mac Estimated Blood Loss Estimated blood loss (mL): minimal Specimens/Packing Specimens Removed ge jxn,antrum COLE MONTES MD Aug 19, 2020 17:18
--- NOTE | 2020-08-19 19:42 | OPERATIVE REPORT ---
DATE OF SERVICE: 08/19/2020 ATTENDING PRIMARY CARE PHYSICIAN: Viktoria Perez MD PREOPERATIVE DIAGNOSES: Gastroesophageal reflux disease, dark tarry stools. POSTOPERATIVE DIAGNOSES: Reflux esophagitis stage II, slightly enlarged gastric pouch, no band erosion. Moderate gastritis. No formal ulcerations or any bleeding sources. Mild chronic stage II external and internal hemorrhoids. Remainder of the colon and rectum were normal. PROCEDURE: EGD with biopsy, colonoscopy. SURGEON: Cole Montes MD. ANESTHESIA: Monitored anesthesia care. ESTIMATED BLOOD LOSS: Minimal. FINDINGS: Reflux esophagitis stage II, slightly enlarged gastric pouch, no band erosion. Moderate gastritis. No formal ulcerations or any bleeding sources. Mild chronic stage II external and internal hemorrhoids. Remainder of the colon and rectum were normal. DISPOSITION: The patient tolerated the procedure well. INDICATIONS: The patient is a 40-year-old female who we had initially seen for morbid obesity and medical comorbidities including hypertension, hypertriglyceridemia, hypercholesterolemia, non-insulin dependent diabetes as well as gastroesophageal reflux disease. She is status post laparoscopic adjustable gastric band with an AP standard band on 03/25/2013. She reports that she has had crampy abdominal pain despite being medically compliant and proceeding and taking a high protein diet and avoiding acidogenic foods. She has noticed dark tarry stools on an intermittent basis in the past several months as well. DESCRIPTION OF PROCEDURE: The patient was brought to the endoscopy suite, laid in left lateral decubitus position. After adequate IV pain and sedative medications and monitored anesthesia care, the mouthpiece was applied. The endoscope was placed in the mouth, visualizing the pharynx and hypopharyngeal region. Vocal cords, epiglottis and vallecula identified and appeared to be normal. Endoscope was then gently intubated into the esophageal opening and esophagus insufflated. The endoscope was then advanced through the first, second and third portion of esophagus at the level of the GE junction, reflux esophagitis stage II identified. There were no ulcers or strictures identified in this region. A biopsy was taken of the GE junction with forceps with visualization of good hemostasis. The endoscope was then advanced into the stomach and the gastric pouch appeared to be slightly larger in size, which may indicate some level of band slippage. The endoscope was easily advanced through the aperture of the band and endoscope retroflexed visualizing no band erosion. There was a moderate severity gastritis. No formal ulcerations, polyps, or any neoplasms and a biopsy was taken of the antrum to rule out H. pylori with visualization of good hemostasis. Endoscope was then advanced to the pylorus and first and second portion of the duodenum, which appeared normal with no distal obstructions or any ulcerations. Endoscope was then slowly withdrawn while taking a second look and suctioning of residual air with no additional findings. Under the same anesthesia, we then proceeded with the colonoscopy portion of procedure. Digital rectal examination was performed, which revealed mild chronic stage II external and internal hemorrhoids, not actively edematous nor inflamed and no bleeding. Normal sphincter tone was felt and there were no palpable masses. The endoscope was then intubated and anus and rectum gently insufflated. The endoscope was then advanced to the valves of Tomas of the rectum with no polyps or any neoplasms identified. Through the sigmoid colon, no diverticulosis identified. The endoscope was then advanced to the remainder of the descending, transverse and ascending colon to the cecum, which were normal. There were no polyps or any neoplasms identified as well as no bleeding sources. The endoscope was slowly withdrawn while taking a second look and suctioning of residual air with no additional findings. The patient tolerated the procedure well. We will recommend the necessary lifestyle and diet accommodation including small and more frequent meals, avoidance of eating at night as well as head elevation while lying supine. We also want her to avoid caffeinated beverages, spicy, greasy and acidic foods. We will also start her on Protonix 40 mg daily. We also want her to proceed with a high fiber diet with at least 25 grams of fiber daily as well as significant amounts of water to promote soft stools on a daily basis for preventive maintenance of any colonic pathology. Job ID: [id number] DocumentID: [id number] Dictated Date: 08/19/2020 15:13:50 Fleet Administrative Assistant Date: 08/19/2020 19:40:54 Dictated By: COLE MONTES MD [facility]
--- NOTE | 2020-08-20 11:08 | HISTORY AND PHYSICAL ---
DATE OF SERVICE: ATTENDING PRIMARY CARE PHYSICIAN: Viktoria Perez MD HISTORY OF PRESENT ILLNESS: The patient is a 40-year-old female known to us. We had initially seen her in 01/2013 for morbid obesity and medical comorbidities including hypertension, hypertriglyceridemia, hypercholesterolemia, non-insulin dependent diabetes as well as gastroesophageal reflux disease. She is status post laparoscopic adjustable gastric band with an AP standard band on 03/25/2013. We have seen her for postoperative visits for band adjustments and she had done significantly well for many years; however, reports that she has gained some weight and has had difficulty losing the weight as well. She also reports that she has had worsening episodes of epigastric burning sensation as well as crampy pain despite being medically compliant and taking in a high protein diet and avoiding acidogenic foods. She also does report noticing dark tarry stools on an intermittent basis in the past several months as well. PAST MEDICAL HISTORY: Hypertension, hypercholesterolemia, history of nephrolithiasis, history of ovarian cyst, ADHD, anxiety, depression. PAST SURGICAL HISTORY: Laparoscopic adjustable gastric band in 03/2013. Uterine ablation, jaw reconstruction, rhinoplasty, sinus surgery. ALLERGIES: No known drug allergies. MEDICATIONS: Alprazolam 0.25 mg q.12 hours p.r.n., cyanocobalamin 1000 mcg injection every 2 weeks, citalopram 20 mg daily, hydrochlorothiazide 25 mg daily, levocetirizine 5 mg daily, metoprolol 25 mg daily, omeprazole 40 mg daily. SOCIAL HISTORY: Negative smoke. She does drink alcohol daily. FAMILY HISTORY: Mother and sister, cervical cancer. VITAL SIGNS: Stable. Blood pressure 141/94, pulse 82, respirations 10, pulse ox 96% on room air. Current weight 200 pounds at 5 feet 2 inches with a body mass index of 36.7. REVIEW OF SYSTEMS: Well-nourished female currently in no acute distress. She is not experiencing any shortness of breath or difficulty breathing. No chest pain, palpitations, diaphoresis. Intermittent episodes of crampy epigastric pain as well as dysphagia for some types of foods and regurgitation. No hematemesis, no coffee ground emesis. She also has had intermittent episodes of dark tarry stools. During these episodes, she would also have constipation. No fever, chills, no recent inadvertent weight loss. All other review of systems negative. PHYSICAL EXAMINATION: CHEST: Clear. Good breath sounds bilaterally. HEART: Regular, no murmurs. EXTREMITIES: No lower extremity edema, negative Homans sign. HEENT: No scleral icterus. NECK: No cervical lymphadenopathy. ABDOMEN: Soft, nondistended. There is pain in the epigastric region upon deep palpation. No peritoneal signs. No hernias. SKIN: Warm, dry. ASSESSMENT AND PLAN: A 40-year-old female with worsening gastroesophageal reflux disease, dysphagia as well as dark tarry stools. We will proceed with evaluation of her upper and lower gastrointestinal tract with an EGD and colonoscopy and also locate the positioning of the band to see if this has potentially slipped and superiorly or inferiorly. If this is the case, she may benefit from laparoscopic band removal and interval other bariatric surgical procedure if she wishes to proceed with that. Job ID: [id number] DocumentID: [id number] Dictated Date: 08/17/2020 19:18:28 Clinical Microbiologist Date: 08/17/2020 19:40:46 Dictated By: COLE MONTES MD <Dictated by COLE MONTES MD> <Electronically signed by COLE MONTES MD> 08/18/20 1859 [facility]
== END 2020-08-19 15:15 | disposition home or self-care (01) ==
LOC: ENDO 12:10
PROVIDERS: ATTEND Surgery
DX: K29.50 Unspecified chronic gastritis without bleeding (principal); K21.00 Gastro-esophageal reflux disease with esophagitis, without bleeding; K64.1 Second degree hemorrhoids; F41.9 Anxiety disorder, unspecified; F90.9 Attention-deficit hyperactivity disorder, unspecified type; I10 Essential (primary) hypertension; F32.9 Major depressive disorder, single episode, unspecified; E78.00 Pure hypercholesterolemia, unspecified; Z79.899 Other long term (current) drug therapy; Z91.018 Allergy to other foods; Z91.013 Allergy to seafood
CPT/HCPCS: 88305